=== PATIENT | male | born 1995 | race Caucasian/White ===

== ENCOUNTER 2016-11-17 20:57 | Emergency (ER) | payer OTHER ==
[~2016-11-17] VITALS: Ht 187.9 cm; Wt 154.2 kg
[~2016-11-17 20:57] MED LIST: MEDROL DOSEPAK4 MG PO; MOTRIN800 MG PO; ZITHROMAX Z PA250 MG PO; ZITHROMAX250 MG PO
[2016-11-17 22:06] LABS: BASO % 0.4 % (0.0-1.0); EOS # 0.2 10*3/uL (0.0-0.4); EOS % 1.8 % (1.0-4.0); HEMATOCRIT 48.1 % (42.0-52.0); HEMOGLOBIN 16.7 g/dl (14.0-18.0); LYMPH # 3.2 10*3/uL (1.3-4.4); LYMPH % 31.3 % (27.0-41.0); MEAN CELL VOLUME 85.3 fl (80.0-94.0); MEAN CORPUSCULAR HGB 29.6 pg (27.0-31.0); MEAN CORPUSCULAR HGB CONC 34.7 g/dl (33.0-37.0); MEAN PLATELET VOLUME 9.6 fl (9.6-12.3); MONO # 0.7 10*3/uL (0.1-1.0); MONO % 6.6 % (3.0-9.0); NEUT # 6.1 10*3/uL (2.3-7.9); NEUT % 59.6 % (47.0-73.0); PLATELET COUNT AUTOMATED 255 10*3/uL (130-400); RED BLOOD COUNT 5.64 10*6/uL (4.50-5.90); RED CELL DISTRI WIDTH 12.2 % (0-14.5); WHITE BLOOD COUNT 10.1 10*3/uL (4.8-10.8)
[2016-11-17 22:15] LABS: INTERNATIONAL NORM RATIO 0.9 (2.0-3.5)
[2016-11-17 22:25] LABS: ALBUMIN 3.7 gm/dl (3.1-4.5); ALKALINE PHOSPHATASE 66 U/L (45-117); BUN 10 mg/dl (7-24); CHLORIDE 105 mmol/L (98-107); CREATININE 0.89 mg/dL (0.70-1.30); LIPASE 168 U/L (73-393); POTASSIUM 3.5 mmol/L (3.5-5.1); SGOT/AST 17 IU/L (3-35); SGPT/ALT 39 U/L (12-78); SODIUM 140 mmol/L (136-145); TOTAL PROTEIN 7.6 gm/dL (6.4-8.2)
[2016-11-17 22:26] LABS: TROPONIN I < 0.015 ng/ml (<0.045)
[2016-11-17] MEDS ORDERED: VISTARIL25 MG PO (23:17)
== END 2016-11-17 23:42 | disposition home or self-care (01) ==
LOC: ED 20:57
PROVIDERS: Physician Assistant
DX: R07.9 Chest pain, unspecified (principal); Z79.899 Other long term (current) drug therapy

== ENCOUNTER 2017-10-08 19:12 | Emergency (ER) | payer SELFPAY ==
[~2017-10-08] VITALS: Ht 187.9 cm; Wt 167.8 kg
[~2017-10-08 19:12] MED LIST changes: +VISTARIL25 MG PO
[2017-10-08] MEDS ORDERED: FLONASE ALLERG9.9 ML NAS (19:17)
[2017-10-08] MEDS ORDERED: PREDNISONE10 MG PO (19:17)
[2017-10-08] MEDS ORDERED: CLARITIN10 MG PO (19:17)
[2017-10-08] MEDS ORDERED: ROBITUSSIN DM 105 ML PO (19:17)
[2017-10-08] MEDS ORDERED: ZITHROMAX250 MG PO (20:26)
== END 2017-10-08 20:26 | disposition home or self-care (01) ==
LOC: ED 19:12
DX: J20.9 Acute bronchitis, unspecified (principal); R03.0 Elevated blood-pressure reading, without diagnosis of hypertension

== ENCOUNTER 2017-12-15 23:18 | Emergency (ER) | payer SELFPAY ==
[~2017-12-15] VITALS: Ht 190.5 cm; Wt 172.4 kg
[~2017-12-15 23:18] MED LIST changes: +CLARITIN10 MG PO; +FLONASE ALLERG9.9 ML NAS; +PREDNISONE10 MG PO; +ROBITUSSIN DM 105 ML PO
[2017-12-15 23:58] LABS: BASO # 0.1 10*3/uL (0.0-0.1); BASO % 0.5 % (0.0-1.0); EOS # 0.4 10*3/uL (0.0-0.4); EOS % 4.3 % (1.0-4.0); HEMATOCRIT 44.1 % (42.0-52.0); HEMOGLOBIN 15.2 g/dl (14.0-18.0); LYMPH # 3.6 10*3/uL (1.3-4.4); LYMPH % 34.7 % (27.0-41.0); MEAN CELL VOLUME 86.8 fl (80.0-94.0); MEAN CORPUSCULAR HGB 29.9 pg (27.0-31.0); MEAN CORPUSCULAR HGB CONC 34.5 g/dl (33.0-37.0); MEAN PLATELET VOLUME 9.7 fl (9.6-12.3); MONO # 0.9 10*3/uL (0.1-1.0); MONO % 8.5 % (3.0-9.0); NEUT # 5.3 10*3/uL (2.3-7.9); NEUT % 51.6 % (47.0-73.0); PLATELET COUNT AUTOMATED 222 10*3/uL (130-400); RED BLOOD COUNT 5.08 10*6/uL (4.50-5.90); RED CELL DISTRI WIDTH 12.1 % (0-14.5); WHITE BLOOD COUNT 10.2 10*3/uL (4.8-10.8)
[2017-12-16] MEDS ORDERED: Motrin,Rufen800 MG PO (00:06)
[2017-12-16] MEDS ORDERED: SEPTDS PO (00:06)
[2017-12-16] MEDS ORDERED: CEFADROXIL500 M1 PO (00:06)
[2017-12-16 00:10] LABS: ALBUMIN 3.6 gm/dl (3.1-4.5); ALKALINE PHOSPHATASE 62 U/L (45-117); BUN 13 mg/dl (7-24); CHLORIDE 106 mmol/L (98-107); CREATININE 0.88 mg/dL (0.70-1.30); POTASSIUM 3.8 mmol/L (3.5-5.1); SGOT/AST 21 IU/L (3-35); SGPT/ALT 57 U/L (12-78); SODIUM 140 mmol/L (136-145); TOTAL PROTEIN 6.8 gm/dL (6.4-8.2)
== END 2017-12-16 01:13 | disposition home or self-care (01) ==
LOC: ED 23:18
PROVIDERS: Physician Assistant
DX: L08.89 Other specified local infections of the skin and subcutaneous tissue (principal); R21 Rash and other nonspecific skin eruption; Z79.899 Other long term (current) drug therapy; Z79.2 Long term (current) use of antibiotics

== ENCOUNTER 2017-12-19 18:17 | Emergency (ER) | payer SELFPAY ==
[~2017-12-19] VITALS: Ht 187.9 cm; Wt 172.4 kg
[~2017-12-19 18:17] MED LIST changes: +CEFADROXIL500 M1 PO; +Motrin,Rufen800 MG PO; +SEPTDS PO
[2017-12-19] MEDS ORDERED: LIDEX 0.05% CRE15 GM T (18:57)
== END 2017-12-19 19:11 | disposition home or self-care (01) ==
LOC: ED 18:17
DX: L25.9 Unspecified contact dermatitis, unspecified cause (principal); Z79.2 Long term (current) use of antibiotics; Z79.899 Other long term (current) drug therapy

== ENCOUNTER 2018-06-20 11:05 | Emergency (ER) | payer BC ==
[~2018-06-20] VITALS: Ht 187.9 cm; Wt 181.4 kg
[~2018-06-20 11:05] MED LIST changes: +LIDEX 0.05% CRE15 GM T
[2018-06-20] MEDS ORDERED: IBUPROFEN600 MG PO (13:10)
[2018-06-20] MEDS ORDERED: AUGMENTIN 875875 MG PO (13:10)
== END 2018-06-20 14:58 | disposition home or self-care (01) ==
LOC: ED 11:05
DX: J02.0 Streptococcal pharyngitis (principal); R19.7 Diarrhea, unspecified; Z79.2 Long term (current) use of antibiotics; Z79.899 Other long term (current) drug therapy

== ENCOUNTER 2018-07-04 15:23 | Emergency (ER) | payer BC ==
[~2018-07-04] VITALS: Ht 185.4 cm; Wt 119.7 kg
[~2018-07-04 15:23] MED LIST changes: +AUGMENTIN 875875 MG PO; +IBUPROFEN600 MG PO
[2018-07-04] MEDS ORDERED: ANAPROX DS550 MG PO (17:21)
[2018-07-04] MEDS ORDERED: ROBAXIN500 M1 PO (17:21)
== END 2018-07-04 18:01 | disposition home or self-care (01) ==
LOC: ED 15:23
DX: S16.1XXA Strain of muscle, fascia and tendon at neck level, initial encounter (principal); M54.6 Pain in thoracic spine; Z98.890 Other specified postprocedural states; V89.2XXA Person injured in unspecified motor-vehicle accident, traffic, initial encounter; Y93.89 Activity, other specified; Y92.488 Other paved roadways as the place of occurrence of the external cause; Y99.8 Other external cause status

== ENCOUNTER 2019-01-12 14:24 | Emergency (ER) | payer OTHER ==
[~2019-01-12] VITALS: Wt 181.4 kg
[~2019-01-12 14:24] MED LIST changes: +ANAPROX DS550 MG PO; +ROBAXIN500 M1 PO
[2019-01-12] MEDS ORDERED: IBU600 M1 PO (16:06)
== END 2019-01-12 16:16 | disposition home or self-care (01) ==
LOC: ED 14:24
DX: S82.892A Other fracture of left lower leg, initial encounter for closed fracture (principal); J45.909 Unspecified asthma, uncomplicated; X50.1XXA Overexertion from prolonged static or awkward postures, initial encounter; Y93.89 Activity, other specified; Y92.89 Other specified places as the place of occurrence of the external cause; Y99.8 Other external cause status

== ENCOUNTER 2019-08-15 10:24 | Emergency (ER) | payer SELFPAY ==
[~2019-08-15] VITALS: Ht 187.9 cm; Wt 181.4 kg
[~2019-08-15 10:24] MED LIST changes: +IBU600 M1 PO
[2019-08-15 11:09] LABS: BASO % 0.4 % (0.0-1.0); EOS # 0.2 10*3/uL (0.0-0.4); EOS % 1.6 % (1.0-4.0); LYMPH # 2.7 10*3/uL (1.3-4.4); LYMPH % 26.7 % (27.0-41.0); MEAN CORPUSCULAR HGB 29.7 pg (27.0-31.0); MEAN CORPUSCULAR HGB CONC 34.6 g/dl (33.0-37.0); MEAN PLATELET VOLUME 9.4 fl (9.6-12.3); MONO # 0.7 10*3/uL (0.1-1.0); MONO % 6.9 % (3.0-9.0); NEUT # 6.4 10*3/uL (2.3-7.9); PLATELET COUNT AUTOMATED 254 10*3/uL (130-400); RED BLOOD COUNT 5.58 10*6/uL (4.50-5.90); RED CELL DISTRI WIDTH 12.1 % (0-14.5)
[2019-08-15 11:23] LABS: ALBUMIN 3.7 gm/dl (3.1-4.5); ALKALINE PHOSPHATASE 73 U/L (45-117); BUN 13 mg/dl (7-24); CHLORIDE 105 mmol/L (98-107); LIPASE 94 U/L (73-393); SGOT/AST 35 IU/L (3-35); SGPT/ALT 59 U/L (12-78); SODIUM 138 mmol/L (136-145); TOTAL PROTEIN 7.4 gm/dL (6.4-8.2)
[2019-08-15 11:24] LABS: BILIRUBIN NEGATIVE (NEGATIVE); BLOOD NEGATIVE (NEGATIVE); CLARITY CLEAR (CLEAR); COLOR YELLOW (YELLOW); GLUCOSE NEGATIVE (NEGATIVE); KETONE NEGATIVE (NEGATIVE); LEUKO ESTERASE NEGATIVE (NEGATIVE); NITRITE NEGATIVE (NEGATIVE); PH 6.5 (5.0-9.0); UROBILINOGEN 0.2 E.U./dl (0.2-1.0)
[2019-08-15 11:29] LABS: BACTERIA TRACE; WBC 0-2 wbc/hpf (0-5)
[2019-08-15] MEDS ORDERED: PROTONIX40 MG PO (11:43)
== END 2019-08-15 11:41 | disposition home or self-care (01) ==
LOC: ED 10:24
PROVIDERS: Nurse Practitioner Family
DX: K21.9 Gastro-esophageal reflux disease without esophagitis (principal); J45.909 Unspecified asthma, uncomplicated; Z79.899 Other long term (current) drug therapy; Z87.891 Personal history of nicotine dependence

== ENCOUNTER 2020-05-06 16:24 | Emergency (ER) | payer SELFPAY ==
[~2020-05-06] VITALS: Ht 187.9 cm; Wt 183.7 kg
[~2020-05-06 16:24] MED LIST changes: +PROTONIX40 MG PO
== END 2020-05-06 18:15 | disposition home or self-care (01) ==
LOC: ED 16:24
DX: S93.401A Sprain of unspecified ligament of right ankle, initial encounter (principal); J45.909 Unspecified asthma, uncomplicated; Z79.899 Other long term (current) drug therapy; W18.49XA Other slipping, tripping and stumbling without falling, initial encounter; Y93.89 Activity, other specified; Y92.89 Other specified places as the place of occurrence of the external cause; Y99.8 Other external cause status

== ENCOUNTER 2020-09-22 22:10 | Emergency (ER) | payer SELFPAY ==
[~2020-09-22] VITALS: Ht 187.9 cm; Wt 186.0 kg
[2020-09-23] MEDS ORDERED: AMOXICILLIN500 M2 PO (01:07)
== END 2020-09-23 02:00 | disposition home or self-care (01) ==
LOC: ED 22:10
DX: K08.89 Other specified disorders of teeth and supporting structures (principal); K21.9 Gastro-esophageal reflux disease without esophagitis; Z79.899 Other long term (current) drug therapy

== ENCOUNTER 2020-11-24 10:55 | Emergency (ER) | payer SELFPAY ==
[~2020-11-24 10:55] MED LIST changes: +AMOXICILLIN500 M2 PO
[2020-11-24] MEDS ORDERED: PREDNISONE20 M1 PO (13:21)
[2020-11-24] MEDS ORDERED: SEPTDS PO (13:21)
== END 2020-11-24 13:54 | disposition home or self-care (01) ==
LOC: ED 10:55
DX: L23.7 Allergic contact dermatitis due to plants, except food (principal); L08.9 Local infection of the skin and subcutaneous tissue, unspecified

== ENCOUNTER 2020-12-28 18:29 | Emergency (ER) | payer SELFPAY ==
[~2020-12-28] VITALS: Ht 187.9 cm; Wt 48.5 kg
[~2020-12-28 18:29] MED LIST changes: +PREDNISONE20 M1 PO
[2020-12-28 19:17] LABS: BASO % 0.2 % (0.0-1.0); EOS % 0.6 % (1.0-4.0); HEMATOCRIT 44.9 % (42.0-52.0); LYMPH # 1.5 10*3/uL (1.3-4.4); LYMPH % 31.2 % (27.0-41.0); MEAN CELL VOLUME 88.7 fl (80.0-94.0); MEAN CORPUSCULAR HGB 29.8 pg (27.0-31.0); MEAN CORPUSCULAR HGB CONC 33.6 g/dl (33.0-37.0); MEAN PLATELET VOLUME 9.5 fl (9.6-12.3); MONO # 0.5 10*3/uL (0.1-1.0); MONO % 10.7 % (3.0-9.0); NEUT # 2.7 10*3/uL (2.3-7.9); NEUT % 57.1 % (47.0-73.0); PLATELET COUNT AUTOMATED 167 10*3/uL (130-400); RED BLOOD COUNT 5.06 10*6/uL (4.50-5.90); RED CELL DISTRI WIDTH 12.1 % (0-14.5); WHITE BLOOD COUNT 4.7 10*3/uL (4.8-10.8)
[2020-12-28 19:27] LABS: BUN 10 mg/dl (7-24); CHLORIDE 103 mmol/L (98-107); CREATININE 1.05 mg/dL (0.70-1.30); POTASSIUM 3.4 mmol/L (3.5-5.1); SODIUM 137 mmol/L (136-145)
== END 2020-12-28 20:20 | disposition home or self-care (01) ==
LOC: ED 18:29
PROVIDERS: Nurse Practitioner Family
DX: U07.1 COVID-19 (principal)

== ENCOUNTER 2021-01-01 19:20 | Inpatient (IN) | payer OTHER ==
[~2021-01-01] VITALS: Ht 187.9 cm; Wt 181.4 kg
[2021-01-01 19:39] VITALS: BP 119/83
[2021-01-01 20:22] LABS: BASO % 0.3 % (0.0-1.0); HEMATOCRIT 49.5 % (42.0-52.0); LYMPH % 27.1 % (27.0-41.0); MEAN CELL VOLUME 85.9 fl (80.0-94.0); MEAN CORPUSCULAR HGB 29.5 pg (27.0-31.0); MEAN CORPUSCULAR HGB CONC 34.3 g/dl (33.0-37.0); MEAN PLATELET VOLUME 10.1 fl (9.6-12.3); MONO # 0.3 10*3/uL (0.1-1.0); MONO % 7.9 % (3.0-9.0); NEUT # 2.3 10*3/uL (2.3-7.9); NEUT % 64.4 % (47.0-73.0); PLATELET COUNT AUTOMATED 146 10*3/uL (130-400); RED BLOOD COUNT 5.76 10*6/uL (4.50-5.90); RED CELL DISTRI WIDTH 12.2 % (0-14.5); WHITE BLOOD COUNT 3.5 10*3/uL (4.8-10.8)
[2021-01-01 20:38] LABS: ALBUMIN 3.2 gm/dl (3.1-4.5); ALKALINE PHOSPHATASE 50 U/L (45-117); BUN 12 mg/dl (7-24); CHLORIDE 98 mmol/L (98-107); CREATININE 1.07 mg/dL (0.70-1.30); POTASSIUM 3.6 mmol/L (3.5-5.1); SGOT/AST 52 IU/L (3-35); SGPT/ALT 54 U/L (12-78); SODIUM 132 mmol/L (136-145); TOTAL PROTEIN 7.5 gm/dL (6.4-8.2)
[2021-01-01 21:23] VITALS: BP 121/63
[2021-01-02 00:06] VITALS: BP 108/58
[2021-01-02 04:12] VITALS: BP 112/64
[2021-01-02 05:41] VITALS: BP 117/59
[2021-01-02 05:44] LABS: ALBUMIN 3.2 gm/dl (3.1-4.5); ALKALINE PHOSPHATASE 46 U/L (45-117); BUN 14 mg/dl (7-24); CHLORIDE 97 mmol/L (98-107); CHOLESTEROL 116 mg/dL (<200); LDH 372 U/L (87-241); LDL CHOLESTEROL 76 mg/dL (9-159); POTASSIUM 4.1 mmol/L (3.5-5.1); SGOT/AST 56 IU/L (3-35); SGPT/ALT 52 U/L (12-78); SODIUM 134 mmol/L (136-145); TOTAL PROTEIN 7.6 gm/dL (6.4-8.2); TRIGLYCERIDES 148 mg/dl (<150)
[2021-01-02 05:52] LABS: CPK 598 U/L (39-308); FREE T4 1.17 ng/dl (0.76-1.46); THYROID STIM HORMONE (HS) 0.856 uIU/ml (0.358-4.75)
[2021-01-02 06:06] LABS: HEMATOCRIT 51.1 % (42.0-52.0); LYMPH # 0.7 10*3/uL (1.3-4.4); LYMPH % 25.6 % (27.0-41.0); MEAN CELL VOLUME 88.9 fl (80.0-94.0); MEAN CORPUSCULAR HGB 29.4 pg (27.0-31.0); MEAN CORPUSCULAR HGB CONC 33.1 g/dl (33.0-37.0); MEAN PLATELET VOLUME 10.9 fl (9.6-12.3); MONO # 0.2 10*3/uL (0.1-1.0); MONO % 6.9 % (3.0-9.0); NEUT # 1.8 10*3/uL (2.3-7.9); NEUT % 67.1 % (47.0-73.0); PLATELET COUNT AUTOMATED 142 10*3/uL (130-400); RED BLOOD COUNT 5.75 10*6/uL (4.50-5.90); RED CELL DISTRI WIDTH 12.3 % (0-14.5); WHITE BLOOD COUNT 2.6 10*3/uL (4.8-10.8)
[2021-01-02 07:30] VITALS: BP 134/83
[2021-01-02 09:30] VITALS: BP 128/85
[2021-01-02] MEDS ORDERED: PROAIR HFA8.5 GM INH (12:19)
[2021-01-02] MEDS ORDERED: DECADRON6 M1 PO (12:19)
== END 2021-01-02 13:46 | disposition home or self-care (01) | DRG 871 ==
LOC: ED 19:20 → EDHOLD 21:38
PROVIDERS: Internal Medicine; ADMIT Internal Medicine; ATTEND Internal Medicine
PROC: XW033E5 Introduction of Remdesivir Anti-infective into Peripheral Vein, Percutaneous Approach, New Technology Group 5 (ICD-10-PCS; principal; 2021-01-01)
DX: A41.9 Sepsis, unspecified organism (principal); U07.1 COVID-19; J12.82 Pneumonia due to coronavirus disease 2019; E87.1 Hypo-osmolality and hyponatremia; R73.9 Hyperglycemia, unspecified; R74.01 Elevation of levels of liver transaminase levels; Z83.3 Family history of diabetes mellitus; Z79.51 Long term (current) use of inhaled steroids; Z79.899 Other long term (current) drug therapy; Z87.09 Personal history of other diseases of the respiratory system

== ENCOUNTER 2021-06-27 14:30 | Emergency (ER) | payer SELFPAY ==
[~2021-06-27] VITALS: Ht 187.9 cm; Wt 181.4 kg
[~2021-06-27 14:30] MED LIST changes: +DECADRON6 M1 PO; +PROAIR HFA8.5 GM INH
[2021-06-27] MEDS ORDERED: PREDNISONE50 MG PO (14:42)
[2021-06-27] MEDS ORDERED: ALLEGRA ALLERG180 M2 PO (14:42)
[2021-06-27] MEDS ORDERED: PROVENTIL HFA6.7 GM INH (14:42)
[2021-06-27] MEDS ORDERED: OFLOXACIN OTIC5 ML OPH (17:47)
== END 2021-06-27 17:54 | disposition home or self-care (01) ==
LOC: ED 14:30
DX: J45.901 Unspecified asthma with (acute) exacerbation (principal); J06.9 Acute upper respiratory infection, unspecified; H60.501 Unspecified acute noninfective otitis externa, right ear

== ENCOUNTER 2021-11-03 10:54 | Emergency (ER) | payer SELFPAY ==
[~2021-11-03] VITALS: Ht 187.9 cm; Wt 181.4 kg
[~2021-11-03 10:54] MED LIST changes: +ALLEGRA ALLERG180 M2 PO; +OFLOXACIN OTIC5 ML OPH; +PREDNISONE50 MG PO; +PROVENTIL HFA6.7 GM INH
[2021-11-03] MEDS ORDERED: NAPROSYN500 MG PO (11:30)
== END 2021-11-03 11:48 | disposition home or self-care (01) ==
LOC: ED 10:54
DX: M76.61 Achilles tendinitis, right leg (principal); Z79.899 Other long term (current) drug therapy; Z79.2 Long term (current) use of antibiotics

== ENCOUNTER 2022-08-17 16:04 | Emergency (ER) | payer MEDICAID ==
[~2022-08-17] VITALS: Ht 187.9 cm; Wt 172.4 kg
[~2022-08-17 16:04] MED LIST changes: +NAPROSYN500 MG PO
[2022-08-17] MEDS ORDERED: BENADRYL ALLERG25 M5 PO (17:49)
[2022-08-17] MEDS ORDERED: PREDNISONE50 MG PO (17:49)
== END 2022-08-17 18:10 | disposition home or self-care (01) ==
LOC: ED 16:04
DX: L23.9 Allergic contact dermatitis, unspecified cause (principal)